=== PATIENT | female | born 1955 | race Caucasian/White ===

== ENCOUNTER 2019-05-09 21:53 | Emergency (ER) | payer BC, SELFPAY ==
[2019-05-09 21:54] VITALS: BP 163/124; PULSE 126; RESP 20; TEMP 37.4; O2SAT 95; BMI 37.8
--- NOTE | 2019-05-09 21:54 | ED_ITS ---
Entered by Leeanna Mcdermott, acting as scribe for HPI - Altered Mental Status General: Chief Complaint: Altered Mental Status Stated Complaint: AMS Time Seen by Provider: 05/09/19 21:54 Source: EMS Mode of arrival: EMS ([facility]) Limitations: altered mental status History of Present Illness: HPI narrative: 63 yo f came to the er by [facility] for AMS. Onset was today. Ems was told that pt was taking a shower and then became altered. Spouse states that she had gotten out of a bath and went to the kitchen to get something to drink and she went back to the back room, and he heard her scream so he ran back there and he was in the floor waving her arms and legs around and was a little combative. Pt was not there mentally per . said that she has been having some sinus issues and was put on some medicine 2 weeks ago and has been having some headaches since the sinus then. is unsure of what the medication that she takes is called. Pt sees . complaint: decreased responsiveness Onset (ago): day(s) (today) Timing confirmed by: family member Severity: moderate Consistency of symptoms: Unknown Context: change in medication Review of Systems General: Reports: other (negative unless marked) Neuro: Reports: headache (per for 2 weeks) and weakness in extremities [facility] ED PFSH: Medical History Trochanteric bursitis, left hip Social History Smoking and tobacco status: current every day smoker Alcohol intake: current Alcohol intake frequency: holidays/special occasions only Physical Exam Const: COMMON NORMALS: no apparent distress and healthy appearing; negative for oriented x3 EXAM LIMITATIONS: altered mental status HENMT: COMMON NORMALS: normocephalic and head/scalp atraumatic HEAD & SCALP: normocephalic and atraumatic Eye: COMMON NORMALS: PERRL and EOMs intact bilaterally PUPIL: Yes PERRL Neck/C-Spine: COMMON NORMALS: full ROM and supple Chest: COMMONS NORMALS: inspection of chest normal and palpation of chest normal Resp: COMMON NORMALS: normal respiratory effort, no retractions, no use of accessory muscles and clear to auscultation bilaterally AUSCULTATION: clear to auscultation bilaterally Cardio: COMMON NORMALS: regular rate, regular rhythm and no murmurs RATE: regular rate RHYTHM: regular rhythm GI: COMMON NORMALS: normal to inspection, nondistended, normoactive bowel sounds, soft to palpation, non-tender and no masses PALPATION: Yes soft Extremity: COMMON NORMALS: normal to inspection and full ROM Neuro: COMMON NORMALS: negative for oriented x3 OTHER: will not move ex tremities at this time. pt will respond verbally but not able to answer questions Psych: APPEARANCE: Yes grossly normal Skin: COMMON NORMALS: no rashes or lesions noted and no wounds GENERAL SKIN EXAM: no rashes or lesions noted Course Vital Signs: Vital signs: Vital Signs Temperature 99.3 F 05/09/19 21:54 Pulse Rate 74 05/10/19 00:07 Respiratory Rate 18 05/10/19 00:07 Blood Pressure 205/109 05/10/19 00:07 Pulse Oximetry 96 05/10/19 00:07 MDM - Altered Mental Status MDM Narrative: Medical decision making narrative: Patient presents with altered mental status that is since resolved. Once patient returned from CT she is awake and alert and able answer all questions. I went and spoke to her after she awoke and she was very upset and angered at this time. She demanded to see her primary care doctor Dr. Lilly. I tried to explain to her that he does not admit his own patients in the ER and that it is midnight and he would not be able to come in to the hospital at this time. I did explain to her that her head CT was normal but still recommended admission due to her altered mental status. She refused as she states she only wants to see Dr. Lilly and would refuse to speak to me. Patient was also very upset with nursing staff as well. She did claim that we had tortured her. When patient arrived here EMS did do a sternal rub to make sure she was arousable and she awoke then. Patient spoke to malt house supervisor Tara while she was here also. I then went back in and talked her again and offered her admission again which she refused she states she would only talk to Dr. Owens. Patient was able answer all my questions appropriately knew the year her name and where she lived. I spoke to her and had her sign out AGAINST MEDICAL ADVICE. Informed her if she changed her mind and would like to be admitted she is to return. Lab Data: Labs: Lab Results 05/09/19 05/09/19 05/09/19 Range/Units 22:15 22:15 22:15 WBC 14.3 H (4.0-10.0) 10^3/ uL RBC 6.05 H (4.1-5.3) 10^6/u L Hgb 16.2 H (11.5-15.3) g/dL Hct 50.9 H (37.0-47.0) % MCV 84.1 (81-99) fL MCH 26.8 L (28.0-34.0) pg MCHC 31.8 (30.0-36.0) g/dL RDW 15.4 H (12.1-15.1) % Plt Count 435 H (130-400) 10^3/c mm MPV 11.0 H (7.4-10.4) fL Neut % (Auto) 78.5 % Lymph % (Auto) 17.6 % Dickey % (Auto) 2.6 % Eos % (Auto) 0.2 % Baso % (Auto) 0.6 % Neut # (Auto) 11.3 H (1.8-7.7) 10^3/u L Lymph # (Auto) 2.5 (0.8-4.8) 10^3/u L Dickey # (Auto) 0.4 (0.2-0.9) 10^3/u L Eos # (Auto) 0.0 (0.0-0.8) 10^3/u L Baso # (Auto) 0.1 (0.0-0.1) 10^3/u L Nucleated RBC % (a uto) 0 % Nucleated RBCs # 0.0 /100WBC PT 13.20 (10.5-13.3) SECO NDS INR 0.97 (0.8-1.2) Sodium 140 (136-145) mmol/L Potassium 3.8 (3.5-5.1) mmol/L Chloride 100 (98-107) mmol/L Carbon Dioxide 18 L (22-29) mmol/L Anion Gap 25.8 H (5-19) BUN 17 (8-23) mg/dL Creatinine 1.2 H (0.5-0.9) mg/dL GFR Calculation 45.4 L (90-130) mL/min Glucose 245 H (65-115) mg/dL Calculated Osmolal ity 295 (285-295) mOsm/k g Lactate (0.5-2.2) mmol/L Calcium 10.6 H (8.5-10.5) mg/dL Magnesium 2.1 (1.7-2.3) mg/dL Total Bilirubin 0.2 (0.15-1.2) mg/dL AST 20 (0-32) U/L ALT 15 (0-33) U/L Alkaline Phosphata se 95 (35-105) IU/L Troponin T Baselin e (0-10) ng/mL Total Protein 7.7 (6.6-8.7) g/dL Albumin 4.4 (3.5-5.2) g/dL Globulin 3.3 (1.3-4.6) g/dL Urine Color (Yellow) Urine Appearance (CLEAR) Urine pH (5-7) Ur Specific Gravit y (1.005-1.030) Urine Protein (Negative) Urine Glucose (UA) (Normal) Urine Ketones (Negative) Urine Blood (Negative) Urine Nitrate (Negative) Urine Bilirubin (NEGATIVE) Urine Urobilinogen (Negative) mg/dL Ur Leukocyte Maddie ase (Negative) Urine RBC (0-2) /hpf Urine WBC (0-5) /hpf Ur Squamous Epith Cells (0-5) Urine Bacteria (NONE) Hyaline Casts Salicylates < 0.3 L (3-10) mg/dL Urine Opiates Scre en (Negative) ng/mL Acetaminophen < 5.0 L (10-30) ug/mL Ur Barbiturates Sc reen (Negative) ng/mL Ur Phencyclidine S crn (Negative) ng/mL Ur Amphetamines Sc reen (Negative) ng/mL U Benzodiazepines Scrn (Negative) ng/mL Urine Cocaine Scre en (Negative) ng/mL U Marijuana (THC) Screen (Negative) ng/mL Ethyl Alcohol < 10 (0-10) mg/dL Influenza Type A A g (Negative) POC Influenza B Ag (Negative) 05/09/19 05/09/19 05/09/19 Range/Units 22:15 22:30 22:30 WBC (4.0-10.0) 10^3/ uL RBC (4.1-5.3) 10^6/u L Hgb (11.5-15.3) g/dL Hct (37.0-47.0) % MCV (81-99) fL MCH (28.0-34.0) pg MCHC (30.0-36.0) g/dL RDW (12.1-15.1) % Plt Count (130-400) 10^3/c mm MPV (7.4-10.4) fL Neut % (Auto) % Lymph % (Auto) % Dickey % (Auto) % Eos % (Auto) % Baso % (Auto) % Neut # (Auto) (1.8-7.7) 10^3/u L Lymph # (Auto) (0.8-4.8) 10^3/u L Dickey # (Auto) (0.2-0.9) 10^3/u L Eos # (Auto) (0.0-0.8) 10^3/u L Baso # (Auto) (0.0-0.1) 10^3/u L Nucleated RBC % (a uto) % Nucleated RBCs # /100WBC PT (10.5-13.3) SECO NDS INR (0.8-1.2) Sodium (136-145) mmol/L Potassium (3.5-5.1) mmol/L Chloride (98-107) mmol/L Carbon Dioxide (22-29) mmol/L Anion Gap (5-19) BUN (8-23) mg/dL Creatinine (0.5-0.9) mg/dL GFR Calculation (90-130) mL/min Glucose (65-115) mg/dL Calculated Osmolal ity (285-295) mOsm/k g Lactate (0.5-2.2) mmol/L Calcium (8.5-10.5) mg/dL Magnesium (1.7-2.3) mg/dL Total Bilirubin (0.15-1.2) mg/dL AST (0-32) U/L ALT (0-33) U/L Alkaline Phosphata se (35-105) IU/L Troponin T Baselin e 13 H (0-10) ng/mL Total Protein (6.6-8.7) g/dL Albumin (3.5-5.2) g/dL Globulin (1.3-4.6) g/dL Urine Color Yellow (Yellow) Urine Appearance Hazy A (CLEAR) Urine pH 5 (5-7) Ur Specific Gravit y 1.030 (1.005-1.030) Urine Protein Neg (Negative) Urine Glucose (UA) 2+ (Normal) Urine Ketones 2+ H (Negative) Urine Blood 2+ H (Negative) Urine Nitrate Negative (Negative) Urine Bilirubin Neg (NEGATIVE) Urine Urobilinogen Norm (Negative) mg/dL Ur Leukocyte Maddie ase Negative (Negative) Urine RBC 5-10 H (0-2) /hpf Urine WBC 0-4 H (0-5) /hpf Ur Squamous Epith Cells 0-4 H (0-5) Urine Bacteria Trace (NONE) Hyaline Casts 15-25 H Salicylates (3-10) mg/dL Urine Opiates Scre en (Negative) ng/mL Acetaminophen (10-30) ug/mL Ur Barbiturates Sc reen (Negative) ng/mL Ur Phencyclidine S crn (Negative) ng/mL Ur Amphetamines Sc reen (Negative) ng/mL U Benzodiazepines Scrn (Negative) ng/mL Urine Cocaine Scre en (Negative) ng/mL U Marijuana (THC) Screen (Negative) ng/mL Ethyl Alcohol (0-10) mg/dL Influenza Type A A g Negative (Negative) POC Influenza B Ag Negative (Negative) 05/09/19 05/09/19 Range/Units 22:30 22:40 WBC (4.0-10.0) 10^3/ uL RBC (4.1-5.3) 10^6/u L Hgb (11.5-15.3) g/dL Hct (37.0-47.0) % MCV (81-99) fL MCH (28.0-34.0) pg MCHC (30.0-36.0) g/dL RDW (12.1-15.1) % Plt Count (130-400) 10^3/c mm MPV (7.4-10.4) fL Neut % (Auto) % Lymph % (Auto) % Dickey % (Auto) % Eos % (Auto) % Baso % (Auto) % Neut # (Auto) (1.8-7.7) 10^3/u L Lymph # (Auto) (0.8-4.8) 10^3/u L Dickey # (Auto) (0.2-0.9) 10^3/u L Eos # (Auto) (0.0-0.8) 10^3/u L Baso # (Auto) (0.0-0.1) 10^3/u L Nucleated RBC % (a uto) % Nucleated RBCs # /100WBC PT (10.5-13.3) SECO NDS INR (0.8-1.2) Sodium (136-145) mmol/L Potassium (3.5-5.1) mmol/L Chloride (98-107) mmol/L Carbon Dioxide (22-29) mmol/L Anion Gap (5-19) BUN (8-23) mg/dL Creatinine (0.5-0.9) mg/dL GFR Calculation (90-130) mL/min Glucose (65-115) mg/dL Calculated Osmolal ity (285-295) mOsm/k g Lactate 3.4 H (0.5-2.2) mmol/L Calcium (8.5-10.5) mg/dL Magnesium (1.7-2.3) mg/dL Total Bilirubin (0.15-1.2) mg/dL AST (0-32) U/L ALT (0-33) U/L Alkaline Phosphata se (35-105) IU/L Troponin T Baselin e (0-10) ng/mL Total Protein (6.6-8.7) g/dL Albumin (3.5-5.2) g/dL Globulin (1.3-4.6) g/dL Urine Color (Yellow) Urine Appearance (CLEAR) Urine pH (5-7) Ur Specific Gravit y (1.005-1.030) Urine Protein (Negative) Urine Glucose (UA) (Normal) Urine Ketones (Negative) Urine Blood (Negative) Urine Nitrate (Negative) Urine Bilirubin (NEGATIVE) Urine Urobilinogen (Negative) mg/dL Ur Leukocyte Maddie ase (Negative) Urine RBC (0-2) /hpf Urine WBC (0-5) /hpf Ur Squamous Epith Cells (0-5) Urine Bacteria (NONE) Hyaline Casts Salicylates (3-10) mg/dL Urine Opiates Scre en Negative (Negative) ng/mL Acetaminophen (10-30) ug/mL Ur Barbiturates Sc reen Negative (Negative) ng/mL Ur Phencyclidine S crn Positive H (Negative) ng/mL Ur Amphetamines Sc reen Negative (Negative) ng/mL U Benzodiazepines Scrn Negative (Negative) ng/mL Urine Cocaine Scre en Negative (Negative) ng/mL U Marijuana (THC) Screen Negative (Negative) ng/mL Ethyl Alcohol (0-10) mg/dL Influenza Type A A g (Negative) POC Influenza B Ag (Negative) Imaging Data^: CXR: Attestation: I personally reviewed and interpreted this imaging study as follows: Radiologist's impression: no acute abnormality CT Head: Radiologist's impression: [address] [address] [address] Scan Report Signed Patient: Linda Barreto Unit #: [id number] : 1955 Age/Sex: 63 / F ADM Date: 05/09/19 Loc: ER Room/Bed: Attending Dr: Ordering Provider/Ordering MD: Neto Cheung MD Date of Service: 05/09/19 Procedure(s): CT head wo con* [id number] Accession Number(s): [id number] Report Number: [id number] PROCEDURE INFORMATION: Exam: CT Head Without Contrast Exam date and time: 05/09/2019 10:02 PM Age: 63 years old Clinical indication: Altered mental status/memory loss; Confusion or disorientation; Additional info: AMS TECHNIQUE: Imaging protocol: Computed tomography of the head without contrast. Total DLP: 863.84 mGy-cm Radiation optimization: All CT scans at this facility use at least one of these dose optimization techniques: automated exposure control; mA and/or kV adjustment per patient size (includes targeted exams where dose is matched to clinical indication); or iterative reconstruction. COMPARISON: No relevant prior studies available. FINDINGS: Brain: No hemorrhage. Unremarkable white matter. No mass effect. Ventricles: No ventriculomegaly. Bones/joints: Unremarkable. No acute fracture. Sinuses: Mucosal thickening in a few ethmoidal air cells. No air-fluid levels. Mastoid air cells: No apparent mastoid disease. Soft tissues: Unremarkable. CT/CT head wo con* [id number] IMPRESSION: No acute findings. EKG Data^: EKG 1: Attestation: I personally reviewed and interpreted this EKG as follows: EKG interpretation date: 05/09/19 EKG interpretation time: 22:15 Interpretation: sinus tach hr [address] or t wave abnormalities qrs 93 qtc 399 Discharge Plan Discharge Patient Disposition: Left Against Medical Advice Clinical Impression: Altered mental status Qualifiers: Altered mental status type: unspecified Qualified Code(s): R41.82 - Altered mental status, unspecified Condition: Stable Prescriptions: No Action triamcinolone acetonide [Kenalog] 40 mg/mL suspension 40 mg IM ONCE Qty: 2 RF: 0 lidocaine (PF) 10 mg/mL (1 %) solution 10 mg IM ONCE Qty: 4 RF: 0 ropivacaine (PF) 5 mg/mL (0.5 %) solution 4 ml intra-articular ONCE Qty: 4 RF: 0 esomeprazole magnesium [Nexium] 40 mg capsule,delayed release(DR/EC) 40 mg PO QDAY RF: 0 alprazolam 0.25 mg tablet 0.25 mg PO QDAY RF: 0 lisinopril 30 mg tablet 30 mg PO QDAY RF: 0 quetiapine 50 mg tablet 50 mg PO QDAY RF: 0 Aleve PM 220-25 mg tablet 1 tab PO ONCE RF: 0 Referrals: Emery Lilly, DO [Primary Care Provider] - 1-3 days Discharge Diet: Advance as tolerated Discharge Activity: Resume usual activity Patient Instructions: Altered Mental Status (ED) Discharge Date/Time: 05/10/19 00:08 Coding Level of Care Code ED Aging Room Operator for Chg Fwd Exam Comprehensive The documentation recorded by the Baldemar trujillo Stephanie Lyn, accurately reflects the service I personally performed and the decisions made by Jonatan tolentino Korby, MD
--- NOTE | 2019-05-09 22:00 | XR_ITS ---
WS: [id number] Portable AP upright chest, 05/09/2019 Clinical Data: fever Comparison: Portable chest, 05/23/2014. Findings: No nodules, masses or effusions are seen. The heart is normal. The pulmonary vascularity is not increased. No pneumonia or pneumothorax is seen. XR/XR chest 1V portable [id number] Impression: Negative chest.
--- NOTE | 2019-05-09 22:00 | CTR_ITS ---
PROCEDURE INFORMATION: Exam: CT Head Without Contrast Exam date and time: 05/09/2019 10:02 PM Age: 63 years old Clinical indication: Altered mental status/memory loss; Confusion or disorientation; Additional info: AMS TECHNIQUE: Imaging protocol: Computed tomography of the head without contrast. Total DLP: 863.84 mGy-cm Radiation optimization: All CT scans at this facility use at least one of these dose optimization techniques: automated exposure control; mA and/or kV adjustment per patient size (includes targeted exams where dose is matched to clinical indication); or iterative reconstruction. COMPARISON: No relevant prior studies available. FINDINGS: Brain: No hemorrhage. Unremarkable white matter. No mass effect. Ventricles: No ventriculomegaly. Bones/joints: Unremarkable. No acute fracture. Sinuses: Mucosal thickening in a few ethmoidal air cells. No air-fluid levels. Mastoid air cells: No apparent mastoid disease. Soft tissues: Unremarkable. CT/CT head wo con* [id number] IMPRESSION: No acute findings. Radiation Dose CTDIVOL = (mGy): DLP = 863.84 (mGy-cm)
--- NOTE | 2019-05-09 22:01 | ECG_ITS ---
Measurements Intervals [place] Rate: 117 P: 38 TX: 185 QRS: -12 QRSD: 93 T: 48 QT: 330 QTc: 461 SINUS TACHYCARDIA INCOMPLETE RIGHT BUNDLE BRANCH BLOCK MINIMAL ST DEPRESSION [0.025+ mV ST DEPRESSION] Compared to ECG 05/23/2014 21:18:21 Incomplete right bundle-branch block now present ST (T wave) deviation now present Sinus rhythm no longer present First degree AV block no longer present Intraventricular conduction delay no longer present Electronically Signed On 05-10-2019 10:29:22 CDT by Elyse Andrews M.D. [email or web address]
[2019-05-09] MEDS: lactated ringers 1,000 ML 999 ML IV (22:18)
[2019-05-09 22:22] LABS: Basophils # 0.1 10^3/uL (0.0-0.1); Basophils % 0.6 %; Eosinophils % 0.2 %; Hematocrit 50.9 % (37.0-47.0); Hemoglobin 16.2 g/dL (11.5-15.3); Lymphocytes # 2.5 10^3/uL (0.8-4.8); Lymphocytes % 17.6 %; Mean Corpuscular HGB Conc 31.8 g/dL (30.0-36.0); Mean Corpuscular Hemoglobin 26.8 pg (28.0-34.0); Mean Corpuscular Volume 84.1 fL (81-99); Monocytes # 0.4 10^3/uL (0.2-0.9); Monocytes % 2.6 %; Neutrophils # 11.3 10^3/uL (1.8-7.7); Neutrophils % 78.5 %; Nucleated Red Blood Cells % 0 %; Platelet Count 435 10^3/cmm (130-400); Red Blood Count 6.05 10^6/uL (4.1-5.3); Red Cell Distribution Width 15.4 % (12.1-15.1); White Blood Count 14.3 10^3/uL (4.0-10.0)
[2019-05-09 22:30] LABS: INR 0.97 (0.8-1.2)
[2019-05-09 22:38] LABS: Acetaminophen < 5.0 ug/mL (10-30); Alanine Aminotransferase 15 U/L (0-33); Albumin Level 4.4 g/dL (3.5-5.2); Alcohol Level < 10 mg/dL (0-10); Alkaline Phosphatase 95 IU/L (35-105); Anion Gap 25.8 (5-19); Aspartate Amino Transferase 20 U/L (0-32); Blood Urea Nitrogen 17 mg/dL (8-23); Calcium 10.6 mg/dL (8.5-10.5); Carbon Dioxide 18 mmol/L (22-29); Chloride 100 mmol/L (98-107); Globulin 3.3 g/dL (1.3-4.6); Glomerular Filtration Rate 45.4 mL/min (90-130); Glucose 245 mg/dL (65-115); Magnesium 2.1 mg/dL (1.7-2.3); Osmolality Calculated 295 mOsm/kg (285-295); Potassium 3.8 mmol/L (3.5-5.1); Salicylate < 0.3 mg/dL (3-10); Sodium 140 mmol/L (136-145); Total Bilirubin 0.2 mg/dL (0.15-1.2); Total Protein 7.7 g/dL (6.6-8.7)
[2019-05-09 22:40] LABS: Troponin(5th) Baseline 13 ng/mL (0-10)
[2019-05-09 22:52] LABS: Bilirubin Urine Neg (NEGATIVE); Blood Urine 2+ (Negative); Glucose Urine UA 2+ (Normal); Ketones Urine 2+ (Negative); Leukocyte Esterase Urine Negative (Negative); Nitrate Urine Negative (Negative); Protein Urine Neg (Negative); Urine Appearance Hazy (CLEAR); Urine Color Yellow (Yellow); Urobilinogen Urine Norm (Negative); pH Urine 5 (5-7)
[2019-05-09 22:53] LABS: Add Urine Microscopic? YES
[2019-05-09 22:54] LABS: Amphetamines Screen Urine Negative (Negative); Barbiturates Screen Urine Negative (Negative); Benzodiazepines Screen Urine Negative (Negative); Cocaine Screen Urine Negative (Negative); Opiate Screen Urine Negative (Negative); PCP Screen Urine Positive (Negative); THC Screen Urine Negative (Negative)
[2019-05-09 22:55] LABS: Hyaline Casts Urine 15-25
[2019-05-09 22:58] LABS: Add Urine Culture? No; Bacteria Urine TRACE; Squamous Epithelial Cell Urine 0-4 (0-5); WBC Urine 0-4 /hpf (0-5)
[2019-05-09 22:59] LABS: Lactate (Lactic Acid level) 3.4 mmol/L (0.5-2.2)
[2019-05-09 23:02] LABS: Influenza A by IFA Negative (Negative); Influenza B by IFA Negative (Negative)
[2019-05-10 00:07] VITALS: BP 205/109; PULSE 74; RESP 18; O2SAT 96
== END 2019-05-10 00:08 | disposition left against medical advice (07) ==
PROVIDERS: Emergency Provider Emergency Medicine; Family Provider Electrodiagnostic Medicine; PCP Electrodiagnostic Medicine
DX: R41.82 Altered mental status, unspecified (principal); F17.200 Nicotine dependence, unspecified, uncomplicated
CPT/HCPCS: 12345; 36415; 70450; 71045; 80053; 80306; 80307; 81001; 83605; 83735; 84484; 85025; 85610; 87040; 87804; 93005; 96365; 99283; 99284

== ENCOUNTER → 2019-10-25 13:46 | Outpatient (BNVA) | payer BC, SELFPAY | PROVIDERS: Family Provider Electrodiagnostic Medicine; PCP Electrodiagnostic Medicine; Visit Provider Specialist | DX: M70.62 Trochanteric bursitis, left hip (principal) | CPT/HCPCS: 73502 ==

== ENCOUNTER 2019-12-31 22:17 | Observation (INO) | payer BC, SELFPAY ==
[2019-12-31 22:36] VITALS: BP 164/81; PULSE 79; RESP 20; TEMP 36.8; O2SAT 100; BMI 33.8
[2019-12-31 23:17] VITALS: BP 128/90; PULSE 68; RESP 20; O2SAT 98
[2019-12-31] MEDS: pantoprazole 40 mg SDV 80 MG IVP (23:17)
[2019-12-31] MEDS: ondansetron 2 mg/ML SDV 2 mL 4 MG IVP (23:17)
[2019-12-31] MEDS: morphine 4 mg/mL SDV 1 mL IVP (23:17)
[2019-12-31 23:18] LABS: Basophils # 0.1 10^3/uL (0.0-0.1); Basophils % 0.4 %; Eosinophils % 0.1 %; Hematocrit 46.8 % (37.0-47.0); Hemoglobin 14.8 g/dL (11.5-15.3); Lymphocytes # 2.1 10^3/uL (0.8-4.8); Lymphocytes % 12.5 %; Mean Corpuscular HGB Conc 31.6 g/dL (30.0-36.0); Mean Corpuscular Hemoglobin 26.8 pg (28.0-34.0); Mean Corpuscular Volume 84.6 fL (81-99); Mean Platelet Volume 10.5 fL (7.4-10.4); Monocytes # 0.6 10^3/uL (0.2-0.9); Monocytes % 3.4 %; Neutrophils # 13.84 10^3/uL (1.8-7.7); Neutrophils % 82.9 %; Nucleated Red Blood Cells % 0 %; Platelet Count 403 10^3/cmm (130-400); Red Blood Count 5.53 10^6/uL (4.1-5.3); Red Cell Distribution Width 14.4 % (12.1-15.1); White Blood Count 16.7 10^3/uL (4.0-10.0)
--- NOTE | 2019-12-31 23:22 | CTR_ITS ---
PROCEDURE INFORMATION: Exam: CT Abdomen And Pelvis With Contrast Exam date and time: 12/31/2019 12:02 AM Age: 64 years old Clinical indication: Abdominal pain; Localized; Right upper quadrant (ruq); Additional info: Abdominal pain, bilious emesis TECHNIQUE: Imaging protocol: Computed tomography of the abdomen and pelvis with intravenous contrast. Radiation optimization: All CT scans at this facility use at least one of these dose optimization techniques: automated exposure control; mA and/or kV adjustment per patient size (includes targeted exams where dose is matched to clinical indication); or iterative reconstruction. Contrast material: OMNI 300; Contrast volume: 95 ml; Contrast route: INTRAVENOUS (IV); COMPARISON: CT abdomen pelvis w con* [id number] 12/25/2018 1:11 AM RADIATION DOSE METRICS: Total DLP (mGy-cm): 1147.86 FINDINGS: Liver: Left hepatic lobe cyst, negative for follow-up of. Hepatic steatosis. Gallbladder and bile ducts: Cholelithiasis. Pancreas: Normal. No ductal dilation. Spleen: Normal. No splenomegaly. Adrenal glands: Left adrenal 17 mm nodule, dedicated nonemergent adrenal advised. Kidneys and ureters: Normal. No hydronephrosis. Stomach and bowel: Diverticulosis without diverticulitis. Appendix: No evidence of appendicitis. Intraperitoneal space: Unremarkable. No free air. No significant fluid collection. Vasculature: Unremarkable. No abdominal aortic aneurysm. Lymph nodes: Unremarkable. No enlarged lymph nodes. Urinary bladder: Unremarkable as visualized. Reproductive: Unremarkable as visualized. Bones/joints: Unremarkable. No acute fracture. Soft tissues: Unremarkable. CT/CT abdomen pelvis w con* [id number] IMPRESSION: 1. Negative acute inflammatory process in the abdomen or pelvis 2. Left hepatic lobe cyst, negative for follow-up of. 3. Hepatic steatosis. 4. Left adrenal 17 mm nodule, dedicated nonemergent adrenal advised. 5. Cholelithiasis. 6. Diverticulosis without diverticulitis. Radiation Dose CTDIVOL = (mGy): DLP = 1147.86 (mGy-cm)
[2019-12-31 23:29] LABS: Alanine Aminotransferase 15 U/L (0-33); Albumin Level 4.6 g/dL (3.5-5.2); Alkaline Phosphatase 107 IU/L (35-105); Anion Gap 18.1 (5-19); Aspartate Amino Transferase 19 U/L (0-32); Blood Urea Nitrogen 11 mg/dL (8-23); Calcium 9.7 mg/dL (8.5-10.5); Carbon Dioxide 23 mmol/L (22-29); Chloride 103 mmol/L (98-107); Globulin 2.8 g/dL (1.3-4.6); Glomerular Filtration Rate 72.2 mL/min (90-130); Glucose 199 mg/dL (65-115); Lipase 17 U/L (13-60); Osmolality Calculated 295 mOsm/kg (285-295); Potassium 4.1 mmol/L (3.5-5.1); Sodium 140 mmol/L (136-145); Total Bilirubin 0.2 mg/dL (0.15-1.2); Total Protein 7.4 g/dL (6.6-8.7)
[2019-12-31 23:30] LABS: Lactic Sepsis W/Reflex 3.8 mmol/L (0.5-2.2)
[2020-01-01] VITALS (36 sets, daily range): BP systolic 77–154; BP diastolic 51–94; PULSE 64–92; RESP 15–26; TEMP 36.2–37.3; O2SAT 89–98
--- NOTE | 2020-01-01 | ED_ITS ---
HPI - Abdominal Pain General: Chief Complaint: Abdominal Pain Stated Complaint: abd pain Time Seen by Provider: 12/31/19 22:49 History of Present Illness: HPI narrative: This patient is a 64-year-old female comes in today with severe epigastric pain. Apparently it started about 630 this evening. She has been vomiting although she cannot give me any details - answering that she doesn't know. She had biliary emesis here prior to my exam. She is in quite a bit of distress and does not really want answer my questions. She says that she has had this before and was diagnosed with acute gastritis. She is never had any abdominal surgeries. MD elicited complaint: abdominal pain Pertinent past history: gastritis Onset (ago): hour(s) (3) Pain Consistency: constant Location: Epigastric Severity: severe Quality: cramping and stabbing Radiation: none Migration to: no migration Associated Symptoms: Reports no associated symptoms, nausea and vomiting; Denies chills, constipation, diarrhea and fever(s) Review of Systems General: Reports: 10 or more systems reviewed and unremarkable except in HPI and below Const: Denies: fever(s) or chills ENMT: Denies: odynophagia Resp: Denies: dyspnea GI: Reports: abdominal pain, nausea and vomiting; Denies: diarrhea or constipation : Denies: flank pain or difficulty voiding Musc: Denies: neck pain or back pain Skin/Breast: Denies: rash Neuro: Denies: headache(s), numbness in extremities or weakness in extremities Homero/Lymph: Denies: easy bruising or easy bleeding [facility] ED PFSH: Medical History Trochanteric bursitis, left hip Social History Smoking and tobacco status: current every day smoker Alcohol intake: current Alcohol intake frequency: holidays/special occasions only Physical Exam Const: COMMON NORMALS: patient oriented x3 and alert GENERAL APPEARANCE: cooperative, in distress, anxious and appears older than stated age NUTRITIONAL APPEARANCE: obese ORIENTATION/CONSCIOUSNESS: Yes awake HENMT: HEAD & SCALP: normal to inspection FACE & SINUS: normal facial exam Eye: GENERAL EYE: appearance normal, both eyes and all related structures Neck/C-Spine: COMMON NORMALS: supple, no meningeal signs and no JVD Chest: COMMONS NORMALS: normal inspection of the chest Resp: COMMON NORMALS: normal respiratory effort, No use of accessory muscles and clear to auscultation bilaterally AUSCULTATION: clear to auscultation bilaterally Cardio: COMMON NORMALS: no JVD, regular rate, regular rhythm and No murmurs present (Cardio) RATE: regular rate RHYTHM: regular rhythm GI: PALPATION: Yes Firmness to palpation present (GI), Yes Tenderness to palpation present (GI) (Bilateral upper quadrants and epigastric area) and Yes Guarding due to palpation present (GI) Back/Pelvis: COMMON NORMALS: thoracic and lumbar spine normal to inspection Extremity: COMMON NORMALS: normal to inspection Neuro: COMMON NORMALS: patient oriented x3, moves all extremities, no focal motor deficits and no sensory deficits noted SENSORIUM/ORIENTATION: Yes alert MENINGEAL SIGNS: Yes no meningeal signs Psych: COMMON NORMALS: mental status grossly normal, cooperative and normal affect Skin: COMMON NORMALS: no rashes or lesions noted and turgor normal GENERAL SKIN EXAM: no rashes or lesions noted and turgor normal Course ED course: Patient was treated with multiple doses of pain medication but co ntinued to complain of severe pain. On reexamination when she had calmed down somewhat I was able to localize her pain to the right upper quadrant. She does have an elevated white count. LFTs were within normal limits. CT showed gallstones and ultrasound of the right upper quadrant confirmed gallstones with a normal common bile duct, normal wall thickness, no pericholecystic fluid. I discussed this with Dr. Dacosta and he will admit her to the hospital for further management. She was given a dose of Zosyn while in the ED. Vital Signs: Vital signs: Vital Signs Temperature 97.6 F 01/01/20 03:54 Pulse Rate 75 01/01/20 03:54 Respiratory Rate 20 H 01/01/20 03:54 Blood Pressure 120/60 01/01/20 03:54 Pulse Oximetry 96 01/01/20 03:54 MDM - Abdominal Pain Lab Data: Labs: Lab Results 12/31/19 12/31/19 12/31/19 Range/Units 23:00 23:00 23:00 WBC 16.7 H (4.0-10.0) 10^3/ uL RBC 5.53 H (4.1-5.3) 10^6/u L Hgb 14.8 (11.5-15.3) g/dL Hct 46.8 (37.0-47.0) % MCV 84.6 (81-99) fL MCH 26.8 L (28.0-34.0) pg MCHC 31.6 (30.0-36.0) g/dL RDW 14.4 (12.1-15.1) % Plt Count 403 H (130-400) 10^3/c mm MPV 10.5 H (7.4-10.4) fL Neut % (Auto) 82.9 % Lymph % (Auto) 12.5 % [place] % (Auto) 3.4 % Eos % (Auto) 0.1 % Baso % (Auto) 0.4 % Neut # (Auto) 13.84 H (1.8-7.7) 10^3/u L Lymph # (Auto) 2.1 (0.8-4.8) 10^3/u L [place] # (Auto) 0.6 (0.2-0.9) 10^3/u L Eos # (Auto) 0.0 (0.0-0.8) 10^3/u L Baso # (Auto) 0.1 (0.0-0.1) 10^3/u L Nucleated RBC % (a uto) 0 % Nucleated RBCs # 0.0 /100WBC Sodium 140 (136-145) mmol/L Potassium 4.1 (3.5-5.1) mmol/L Chloride 103 (98-107) mmol/L Carbon Dioxide 23 (22-29) mmol/L Anion Gap 18.1 (5-19) BUN 11 (8-23) mg/dL Creatinine 0.8 (0.5-0.9) mg/dL GFR Calculation 72.2 L (90-130) mL/min Glucose 199 H (65-115) mg/dL Calculated Osmolal ity 295 (285-295) mOsm/k g Lactic Acid 3.8 H (0.5-2.2) mmol/L Calcium 9.7 (8.5-10.5) mg/dL Total Bilirubin 0.2 (0.15-1.2) mg/dL AST 19 (0-32) U/L ALT 15 (0-33) U/L Alkaline Phosphata se 107 H (35-105) IU/L Total Protein 7.4 (6.6-8.7) g/dL Albumin 4.6 (3.5-5.2) g/dL Globulin 2.8 (1.3-4.6) g/dL Lipase 17 (13-60) U/L Urine Color (Yellow) Urine Appearance (CLEAR) Urine pH (5-7) Ur Specific Gravit y (1.005-1.030) Urine Protein (Negative) Urine Glucose (UA) (Normal) Urine Ketones (Negative) Urine Blood (Negative) Urine Nitrate (Negative) Urine Bilirubin (Negative) Urine Urobilinogen (Negative) mg/dL Ur Leukocyte Maddie ase (Negative) 01/01/20 Range/Units 00:30 WBC (4.0-10.0) 10^3/ uL RBC (4.1-5.3) 10^6/u L Hgb (11.5-15.3) g/dL Hct (37.0-47.0) % MCV (81-99) fL MCH (28.0-34.0) pg MCHC (30.0-36.0) g/dL RDW (12.1-15.1) % Plt Count (130-400) 10^3/c mm MPV (7.4-10.4) fL Neut % (Auto) % Lymph % (Auto) % [place] % (Auto) % Eos % (Auto) % Baso % (Auto) % Neut # (Auto) (1.8-7.7) 10^3/u L Lymph # (Auto) (0.8-4.8) 10^3/u L [place] # (Auto) (0.2-0.9) 10^3/u L Eos # (Auto) (0.0-0.8) 10^3/u L Baso # (Auto) (0.0-0.1) 10^3/u L Nucleated RBC % (a uto) % Nucleated RBCs # /100WBC Sodium (136-145) mmol/L Potassium (3.5-5.1) mmol/L Chloride (98-107) mmol/L Carbon Dioxide (22-29) mmol/L Anion Gap (5-19) BUN (8-23) mg/dL Creatinine (0.5-0.9) mg/dL GFR Calculation (90-130) mL/min Glucose (65-115) mg/dL Calculated Osmolal ity (285-295) mOsm/k g Lactic Acid (0.5-2.2) mmol/L Calcium (8.5-10.5) mg/dL Total Bilirubin (0.15-1.2) mg/dL AST (0-32) U/L ALT (0-33) U/L Alkaline Phosphata se (35-105) IU/L Total Protein (6.6-8.7) g/dL Albumin (3.5-5.2) g/dL Globulin (1.3-4.6) g/dL Lipase (13-60) U/L Urine Color Yellow (Yellow) Urine Appearance Clear (CLEAR) Urine pH 7.0 (5-7) Ur Specific Gravit y 1.010 (1.005-1.030) Urine Protein Neg (Negative) Urine Glucose (UA) Trace H (Normal) Urine Ketones 2+ H (Negative) Urine Blood Neg (Negative) Urine Nitrate Negative (Negative) Urine Bilirubin Neg (Negative) Urine Urobilinogen Norm (Negative) mg/dL Ur Leukocyte Maddie ase Negative (Negative) Discharge Plan Discharge Admit Provider: Gui Dacosta Coding Level of Care Code ED Clinical Aide for Rayg Fwd Exam Comprehensive
[2020-01-01] MEDS: iohexol 300 mg/mL 100 mL Btl IV (00:09)
[2020-01-01] MEDS: morphine 4 mg/mL SDV 1 mL IVP (00:44)
[2020-01-01 00:52] LABS: Add Urine Microscopic? NO
[2020-01-01 00:55] LABS: Bilirubin Urine Neg (Negative); Blood Urine Neg (Negative); Glucose Urine UA Trace (Normal); Ketones Urine 2+ (Negative); Nitrate Urine Negative (Negative); Protein Urine Neg (Negative); Urine Appearance Clear (CLEAR); Urine Color Yellow (Yellow)
[2020-01-01 00:56] LABS: Reflex Lactate Order REFLEX LACTIC ORDERD
[2020-01-01 00:56] LABS: Leukocyte Esterase Urine Negative (Negative); Urobilinogen Urine Norm (Negative)
--- NOTE | 2020-01-01 01:31 | US_ITS ---
WS: [id number] RIGHT UPPER QUADRANT ULTRASOUND HISTORY: RUQ COMPARISON: None available. Liver: 16.3 cm in length. Liver is normal size but there is moderate hepatic steatosis. No adjacent f luid. Gallbladder: Normally distended gallbladder with stones. No gallbladder wall thickening. No perichole cystic fluid. CBD: 0.4 cm Pancreas: Not well visualized. Right kidney: 11.8 cm in length. Normal size and echogenicity. No hydronephrosis or mass. Aorta and IVC: Unremarkable abdominal aorta and IVC. No ascites. US/US gall bladder 32597 IMPRESSION: 1. Cholelithiasis without additional evidence for acute cholecystitis. 2. Moderate hepatic steatosis.
[2020-01-01] MEDS: HYDROmorphone 1 mg/mL INJ 1 mL 0.5 MG IVP (02:17)
[2020-01-01] MEDS: piperacillin-tazobactam 3.375 GM in sodium chloride 0.9% (plus) 50 ML IV ×3 (03:28→22:18)
--- NOTE | 2020-01-01 03:55 | PC.NURSE ---
ADMIT NOTE Pt received to floor from ER via gurney at 0345. Alert and moaning. Says just feels awful. Reports pain in RUQ abdomen, nausea with vomiting started around 1700 in the evening. Reports similar episodes in past. IV patent to right ac area. Rating pain in abdomen as a 7 at present time. Says last BM was 12/31/19. VS check done and oriented to room. RN to complete admission assessment
[2020-01-01] MEDS: D5-NS 0.45% + KCL 20 mEq 20 MEQ/1,000 ML BAG 100 MEQ IV ×2 (04:37→16:35)
[2020-01-01] MEDS: ondansetron 2 mg/ML SDV 2 mL 4 MG IVP (04:44)
[2020-01-01] MEDS: morphine 4 mg/mL SDV 1 mL 2 MG IVP (04:44)
--- NOTE | 2020-01-01 07:05 | P.HP_ITS ---
Providers/Chief Complaint Admitting Physician: Gui Dacosta MD Primary Care Provider: Emery Lilly DO Chief Complaint: abd pain History of Present Illness Linda Barreto is a 64 year old female who presented to the hospital last evening after she said she started getting indigestion around 5 PM. She describes this as rather severe epigastric pain associated with some nausea. The patient says she has noticed episodes like this over the past year or so. She has had 3-4 bad episodes but last night was perhaps the worst. She has had less intense episodes in between the episodes that are worse. She says that she has noticed eating particular foods tend to make her pain come on. She says she has noticed that spicy food is one of the worst things for her. Her pain will sometimes radiate around the right side of her body to her back. She feels gassy and bloated and belchy when the episodes occur. She had a CAT scan last night which revealed cholelithiasis but no acute abnormalities. A follow-up ultrasound was done but has yet to be officially read by the radiologist. The patient was in the emergency room on 1 previous occasion for this and was told she had gastritis. She does not ever recall having any kind of a test to confirm that and denies ever having an EGD. She did have a colonoscopy about a year ago and says it was okay. She was started on omeprazole 3 months ago and has been on it daily but continues to have symptoms. She denies any NSAID use. She does tell me that she has had some very dark stool on and off for the past year. She is never been diagnosed with peptic ulcer disease in the past other than the empiric diagnosis of gastritis several months ago. She has no known family history of upper GI neoplasia. The patient says she is feeling a little bit better this morning but is still not feeling well. Review of Systems General: Reports: 10 or more systems reviewed and unremarkable except in HPI and below Const: Denies: fever(s) Resp: Denies: dyspnea GI: Reports: abdominal pain, nausea, vomiting and melena; Denies: hematemesis Medications/Allergies Home Medications Medication Instructions Recorded Confirmed Last Taken Type alprazolam 0.25 mg tablet 0.25 mg PO QDAY 03/07/19 10/25/19 Unknown History esomeprazole magnesium 40 mg 40 mg PO QDAY 03/07/19 10/25/19 Unknown History capsule,delayed release lisinopril 30 mg tablet 30 mg PO QDAY 03/07/19 10/25/19 Unknown History naproxen 220 mg-diphenhydramine 25 1 tab PO ONCE 03/07/19 10/25/19 Unknown History mg tablet quetiapine 50 mg tablet 50 mg PO QDAY 03/07/19 10/25/19 Unknown History escitalopram oxalate 10 mg tablet 10 mg PO DAILY 06/25/19 10/25/19 Unknown History Allergies Allergy/AdvReac Type Severity Reaction Status Date / Time celecoxib [From Celebrex] AdvReac My left Verified 01/01/20 07:38 leg gets heavy meloxicam AdvReac My left Verified 01/01/20 07:38 leg gets heavy PFSH Acute PFSH: Medical History (Updated 01/01/20 @ 07:35 by Gui Dacosta MD) Diverticulosis Hypertension Insomnia Trochanteric bursitis of left hip Surgical History (Updated 01/01/20 @ 07:29 by Gui Dacosta MD) History of appendectomy Social History (Updated 01/01/20 @ 07:36 by Gui Dacosta MD) Smoking and tobacco status: current every day smoker cigarettes Packs smoked per day: 1 Years cigarettes smoked: 20 Alcohol intake: never Vitals/I&O/Wt Last Vital Signs Temp 97.6 F 01/01/20 03:54 Pulse 75 01/01/20 03:54 Resp 18 01/01/20 04:44 BP 120/60 01/01/20 03:54 Pulse Ox 96 01/01/20 03:54 12/31/19 01/01/20 01/01/20 22:59 06:59 14:59 Output Total 300 / 300 Balance -300 / -300 Weight last 48 hrs Weight 185 lb Physical Exam Narrative: EXAM NARRATIVE: The patient was encountered in her hospital room. She indicates that she just does not feel well and has indigestion. The pupils seem equal. No carotid bruits are heard. The lungs are clear anteriorly. The heart is regular. The abdomen is moderately obese but is soft. Bowel sounds are clearly hypoactive. The patient's maximum point of tenderness is in the epigastrium and the right upper quadrant. Armas sign is equivocal. She clearly has more tenderness on the right side than the left side of the abdomen at its upper aspect. No obvious masses are palpated. Extremities reveal no edema. Neurologically the patient appears to be grossly intact. Data : 12/31/19 23:00 12/31/19 23:00 Other Labs: Laboratory Tests 12/31/19 23:00 Total Bilirubin 0.2 AST 19 ALT 15 Alkaline Phosphatase [address] Abd/Pel: Radiologist's impression: CT abdomen/pelvis 12/31/2019 IMPRESSION: 1. Negative acute inflammatory process in the abdomen or pelvis 2. Left hepatic lobe cyst, negative for follow-up of. 3. Hepatic steatosis. 4. Left adrenal 17 mm nodule, dedicated nonemergent adrenal advised. 5. Cholelithiasis. 6. Diverticulosis without diverticulitis. A&P Assessment and plan (1) Calculus of gallbladder with chronic cholecystitis without obstruction: The patient has some ongoing symptoms that are certainly consistent with biliary colic over the past year. We discussed gallbladder disease and gallbladder surgery in some detail. Risks including bleeding, infection, internal organ injury, chances of an open procedure, etc. were all gone over. The patient is feeling slightly better but remains very uncomfortable. I am so mewhat concerned about her elevated lactate, but there is no indication of any other obvious issues on her CAT scan. In looking at the ultrasound images myself, she clearly has cholelithiasis but does not appear to have a significantly thickened gallbladder wall, pericholecystic fluid, etc. The patient seems to indicate that her stool is quite dark at times over the past year but she has been on a proton pump inhibitor daily for at least the last 3 months and her symptoms continue to worsen. I made her aware that an EGD is also a possibility but I suspect her gallbladder is going to be more of the issue. She would like to proceed with a cholecystectomy and would be willing to follow-up with an EGD if felt necessary at some point in time. Laparoscopy will at least allow us to evaluate the abdominal cavity otherwise, and we will proceed with a cholecystectomy if no contraindications exist. Status: Acute Attestations Medical Necessity Statement*: Based on my medical assessment, presenting symptoms, medical accuity and consideration of surgical therapy, I expect this patient will require treatment in the hospital for a period spanning at least 2 midnights. Coding Level of Care Code Acute Underground Utility Locator for Chg Fwd Diagnoses Calculus of gallbladder with chronic cholecystitis without obstruction K80.10
[2020-01-01] MEDS: pantoprazole 40 mg SDV IVP (08:45)
--- NOTE | 2020-01-01 11:22 | P.ANESASSM_ITS ---
Pre-Anesthetic Assessment Pre-Anesthetic Assessment: Height/Weight: Height 1.57 m Weight 83.915 kg Temp Pulse Resp BP Pulse Ox 97.1 F L 81 18 144/82 97 01/01/20 11:21 01/01/20 11:21 01/01/20 11:21 01/01/20 11:21 01/01/20 11:21 Preop Diagnosis: cholecystisis Proposed Procedure: Operation Date: 01/01/20 11:30 Proposed Procedures p Laparoscopic Cholecystectomy(Not Applicable) - Gui Dacosta MD Familial anesthetic complications: none Was Beta La taken within 24 hours: N/A Last intake: Intake Last Liquid Date 01/01/20 Last Liquid Time 21:00 Last Solid Date 12/31/19 Last Solid Time 16:00 Social: Social History: Tobacco and No alcohol Exam: Pre-Anes Outpt Exam: alert, oriented x 3, clear to auscultation bilat erally and regular rate & rhythm Additional Exam Findings (including area of procedure): tachypnea d/t pain Airway: Cervical ROM: WNL MP: 3 Dentition: Full CV/HEM: CV/HEM: HTN GI: GI: GERD Anesthetic Plan: ASA status: 2E Anesthesia: General Risk of > 500 ml blood loss (7ml/kg in children): No Meds/Allergies Current Medications: Current Medications Generic Name Dose Route Start Last Admin Trade Name Freq PRN Reason Stop Dose Admin Potassium Chloride /Dextrose/Sod Cl 20 meq in 1,000 m ls @ 100 mls/hr 01/01/20 04:15 01/01/20 04:37 D5-Ns 0.45% + Slick l 20 Meq IV 100 mls/hr .Q10H KOKO Administration Morphine Sulfate 2 mg 01/01/20 04:12 01/01/20 04:44 Morphine 4 Mg/Ml Sdv 1 Ml IVP 2 mg Q4H PRN Administration SEVERE PAIN Ondansetron HCl 4 mg 01/01/20 04:12 01/01/20 04:44 Ondansetron 2 Mg /Ml Sdv 2 Ml IVP 4 mg Q4H PRN Administration NAUSEA AND VOMITI NG Pantoprazole Sodiu m 40 mg 01/01/20 08:00 01/01/20 08:45 Pantoprazole 40 Mg Sdv IVP 40 mg Q12H KOKO Administration PFSH Anesthesia PFSH: Medical History (Updated 01/01/20 @ 07:35 by Gui Dacosta MD) Diverticulosis Hypertension Insomnia Trochanteric bursitis of left hip Surgical History (Updated 01/01/20 @ 07:29 by Gui Dacosta MD) History of appendectomy Social History (Updated 01/01/20 @ 07:36 by Gui Dacosta MD) Smoking and tobacco status: current every day smoker cigarettes Packs smoked per day: 1 Years cigarettes smoked: 20 Alcohol intake: never Data Anesthesia CBC & Chem 7: 12/31/19 23:00 12/31/19 23:00 Other Labs: Laboratory Results - last 48 hr 12/31/19 12/31/19 12/31/19 23:00 23:00 23:00 WBC 16.7 H RBC 5.53 H Hgb 14.8 Hct 46.8 MCV 84.6 MCH 26.8 L MCHC 31.6 RDW 14.4 Plt Count 403 H MPV 10.5 H Neut % (Auto) 82.9 Lymph % (Auto) 12.5 [place] % (Auto) 3.4 Eos % (Auto) 0.1 Baso % (Auto) 0.4 Neut # (Auto) 13.84 H Lymph # (Auto) 2.1 [place] # (Auto) 0.6 Eos # (Auto) 0.0 Baso # (Auto) 0.1 Nucleated RBC % (auto) 0 Nucleated RBCs # 0.0 Sodium 140 Potassium 4.1 Chloride 103 Carbon Dioxide 23 Anion Gap 18.1 BUN 11 Creatinine 0.8 GFR Calculation 72.2 L Glucose 199 H Calculated Osmolality 295 Lactic Acid 3.8 H Calcium 9.7 Total Bilirubin 0.2 AST 19 ALT 15 Alkaline Phosphatase 107 H Total Protein 7.4 Albumin 4.6 Globulin 2.8 Lipase 17 Urine Color Urine Appearance Urine pH Ur Specific [place] Urine Protein Urine Glucose (UA) Urine Ketones Urine Blood Urine Nitrate Urine Bilirubin Urine Urobilinogen Ur Leukocyte Esterase 01/01/20 00:30 WBC RBC Hgb Hct MCV MCH MCHC RDW Plt Count MPV Neut % (Auto) Lymph % (Auto) [place] % (Auto) Eos % (Auto) Baso % (Auto) Neut # (Auto) Lymph # (Auto) [place] # (Auto) Eos # (Auto) Baso # (Auto) Nucleated RBC % (auto) Nucleated RBCs # Sodium Potassium Chloride Carbon Dioxide Anion Gap BUN Creatinine GFR Calculation Glucose Calculated Osmolality Lactic Acid Calcium Total Bilirubin AST ALT Alkaline Phosphatase Total Protein Albumin Globulin Lipase Urine Color Yellow Urine Appearance Clear Urine pH 7.0 Ur Specific [place] 1.010 Urine Protein Neg Urine Glucose (UA) Trace H Urine Ketones 2+ H Urine Blood Neg Urine Nitrate Negative Urine Bilirubin Neg Urine Urobilinogen Norm Ur Leukocyte Esterase Negative Cardiac Studies: No Data to Display
--- NOTE | 2020-01-01 12:10 | P.OP_ITS ---
Operative Report Date of procedure: January 01, 2020 Pre-op Diagnosis: Early acute calculus cholecystitis. Post-op Diagnosis: Acute calculus cholecystitis. Procedure Done: Laparoscopic cholecystectomy. Specimens removed/disposition: Gallbladder. Surgeon: Gui Dacosta Anesthesia: General Estimated blood loss (mL): 5 Complications: None. Condition: stable Disposition: PACU Procedure: The patient was brought to the Operating Room and was placed in a supine position on the Operating Room table. General endotracheal anesthesia was induced. The abdomen was prepped and draped in a sterile fashion. A small vertical incision was carried out in the inferior aspect of the umbilicus. Blunt dissection was carried out down to the fascia, which was graspe d with a Timoteo clamp. A stay suture of 0 Vicryl was placed on either side of the midline and the midline fascia was incised. The underlying peritoneum was opened bluntly and the Virgilio port was placed directly into the peritoneal cavity and was held in place with the inflatable balloon. The peritoneal cavity was insufflated with carbon dioxide. The laparoscope was used to inspect the abdominal cavity. The portion of the gallbladder that was able to be seen was edematous. No other gross abnormalities were seen. A 5 millimeter port was placed in the epigastrium under direct vision. Two 5-millimeter ports were placed on the right side of the abdomen under direct vision. The gallbladder was palpated with a grasper and was found to be distended. Approximately 50 mL of dark bile were aspirated from the gallbladder with a laparoscopic needle to decompress it. The gallbladder was then grasped and was elevated. Blunt dissection and hydrodissection were carried out in the infundibular region of the gallbladder and the cystic duct and cystic artery were quickly identified. All of the surrounding tissue was edematous and dissected very easily as a result. The gallbladder was partially removed from the liver bed using cautery and the spatula to confirm the anatomy before the structures were clipped and divided. The gallbladder was then removed from the liver bed using cautery and the spatula. Once again, the plane between the gallbladder and the liver bed was edematous. After the gallbladder had been removed from the liver bed, the laparoscope was moved to the epigastric port and the gallbladder was removed from the peritoneal cavity through the umbilical port site. The stay sutures of Vicryl were tied to each other at the umbilicus, closing the defect so that it was airtight. The perihepatic spaces were irrigated with saline and the liver bed was reinspected. No ongoing problems were seen. The remaining ports were removed from the abdominal wall and the pneumope ritoneum was evacuated. All skin incisions were closed using inverted interrupted sutures of 4-0 Vicryl. Benzoin and Steri-Strips were placed over the incisions and Band-Aids followed. The patient was taken to the Recovery Area in stable condition postoperatively.
--- NOTE | 2020-01-01 13:06 | SUR.PHASEI ---
PT AWAKES EASILY , RESP EVEN AND UNLABORED PT HAD EXP WHEEZES EARLIER SEE ALBUTEROL GIVEN PT NOW CLEAR WITH DIM BASES BILAT, PT SLEEPS IF NOT DISTURBED ABD SOFT WITH 4 SITES D/I SATS 94% WITH NO DISTRESS NOTED REPORT ATTEMPTED TO BE CALLED PT NOW IN HOLDING
[2020-01-01] MEDS: heparin 5,000 unit/mL INJ 1 mL 5000 UNIT SUBCUT (13:50)
[2020-01-01] MEDS: ketorolac 30 mg/mL INJ 15 MG IVP ×2 (13:50→20:10)
[2020-01-01] MEDS: escitalopram 10 mg Tablet PO (13:50)
[2020-01-01 14:01] LABS: H. Pylori IgG Antibody Negative (Negative)
--- NOTE | 2020-01-01 14:34 | PM.PACU ---
PACU note PACU note: To floor on NC and continuou pulse ox, O2 sats mid to high 90s Post-Anesthesia Exam: awake Disposition: back to floor
[2020-01-01] MEDS: lactated ringers 500 ML IV (14:47)
--- NOTE | 2020-01-01 15:11 | PM.MISC ---
Miscellaneous Note Purpose of Documentation: Postoperative note. Note: The patient underwent a laparoscopic cholecystectomy for changes of acute calculus cholecystitis midday today. Surgery went well. I was notified by nursing that the patient's blood pressure was a little bit low with a systolic blood pressure of 79, but she was completely asymptomatic. I ordered a 500 mL bolus of LR and asked them to hold on the narcotic pain medication, as well as her scheduled lisinopril. By the time I saw the patient half an hour later her systolic blood pressure was already up to 100. Oxygen saturations are in the mid 90s and her heart rate is normal. She said she already felt much better than she did preoperatively. I told her I wanted to watch her overnight and would plan on sending her home tomorrow morning if everything goes well, and she is very anxious to see that happen.
[2020-01-01] MEDS: levalbuterol 0.63 mg/3 mL Neb INHALATION (15:46)
--- NOTE | 2020-01-01 18:27 | PC.NURSE ---
SHIFT SUMMARY PATIENT HAS DONE WELL TODAY. SHE WENT TO THE OR AROUND 1130. WHEN REPORT WAS GIVEN AFTER SURGERY IT WAS NOTED THAT PATIENT HAD LOW BP AND NOW REQUIRED 3L OF OXYGEN. PATIENT ARRIVED TO THE FLOOR AND WALKED FROM STRETCHER TO BED. PATIENT CONNECTED TO CONTINUOUS PULSE OX AND VITALS CART. THIS NURSE HELD LISINOPRIL AND ADMINISTERED TORADOL FOR PAIN. PATIENT'S BP DROPPED TO 79/51, PATIENT WAS ASYMPTOMATIC. DR. RUIZ NOTIFIED AND A 500ML BOLUS OF LR WAS ORDERED AND GIVEN. PATIENT'S BP HAS GRADUALLY INCREASED AFTER. OXYGEN SATURATION STAYING AROUND 93%. PATIENT'S PAIN WELL CONTROLLED. GOOD URINE OUTPUT. NO COMPLAINTS AT THIS TIME.
[2020-01-02] VITALS (8 sets, daily range): BP systolic 107–111; BP diastolic 72–74; PULSE 65–84; RESP 14–19; TEMP 36.4–36.6; O2SAT 95–97
[2020-01-02] MEDS: HYDROcodone-acetaminophen 5-325 mg Tablet PO ×2 (01:12→05:25)
[2020-01-02] MEDS: heparin 5,000 unit/mL INJ 1 mL 5000 UNIT SUBCUT (01:20)
[2020-01-02] MEDS: D5-NS 0.45% + KCL 20 mEq 20 MEQ/1,000 ML BAG 100 MEQ IV (01:21)
[2020-01-02] MEDS: ketorolac 30 mg/mL INJ 15 MG IVP ×2 (03:00→08:10)
[2020-01-02 05:25] LABS: Basophils % 0.2 %; Hematocrit 38.6 % (37.0-47.0); Hemoglobin 12.1 g/dL (11.5-15.3); Lymphocytes # 1.9 10^3/uL (0.8-4.8); Mean Corpuscular HGB Conc 31.3 g/dL (30.0-36.0); Mean Corpuscular Hemoglobin 26.8 pg (28.0-34.0); Mean Corpuscular Volume 85.6 fL (81-99); Mean Platelet Volume 10.6 fL (7.4-10.4); Monocytes % 5.6 %; Neutrophils # 14.36 10^3/uL (1.8-7.7); Neutrophils % 82.7 %; Nucleated Red Blood Cells % 0 %; Platelet Count 335 10^3/cmm (130-400); Red Blood Count 4.51 10^6/uL (4.1-5.3); Red Cell Distribution Width 14.7 % (12.1-15.1); White Blood Count 17.4 10^3/uL (4.0-10.0)
[2020-01-02] MEDS: piperacillin-tazobactam 3.375 GM in sodium chloride 0.9% (plus) 50 ML IV (05:26)
--- NOTE | 2020-01-02 05:31 | PC.NURSE ---
SHIFT SUMMARY Has done well tonight. Received po Hydrocodone X2 for c/o mild burning' pain in abd incisions. All 4 stab incisions clean & dry with bandaids intact. Also received scheduled IV Toradol. Has voided well. Missed hat for measurement once. IV infusing without difficulty. Taking liquids po without nausea and says feels like she might be able to eat a little this morning. Receiving IV antibiotics. Ambulated in rey this morning with nurse and did well. c/o feeling weak but says feels good to be up and around. Passing gas. Cont pulse ox has read between 94-96% through night. Has occ cough with some prod of sputum this morning.
[2020-01-02 06:06] LABS: Alanine Aminotransferase 34 U/L (0-33); Albumin Level 3.5 g/dL (3.5-5.2); Alkaline Phosphatase 75 IU/L (35-105); Amylase 15 U/L (28-100); Aspartate Amino Transferase 27 U/L (0-32); Globulin 1.7 g/dL (1.3-4.6); Lipase 9 U/L (13-60); Total Bilirubin 0.2 mg/dL (0.15-1.2); Total Protein 5.2 g/dL (6.6-8.7)
[2020-01-02 06:07] LABS: Anion Gap 13.1 (5-19); Blood Urea Nitrogen 9 mg/dL (8-23); Calcium 8.5 mg/dL (8.5-10.5); Carbon Dioxide 24 mmol/L (22-29); Chloride 103 mmol/L (98-107); Glomerular Filtration Rate 84.2 mL/min (90-130); Glucose 128 mg/dL (65-115); Osmolality Calculated 282 mOsm/kg (285-295); Potassium 4.1 mmol/L (3.5-5.1); Sodium 136 mmol/L (136-145)
--- NOTE | 2020-01-02 07:08 | ANE.PACU2 ---
Inpatient post-anesthesia follow up: Airway intact: Yes Vital signs: Temperature 98 F Pulse Rate [Monito r] 79 Pulse Rate 69 Respiratory Rate 19 Blood Pressure [Le ft Arm] 164/81 Blood Pressure 107/73 Pulse Oximetry 96 Oxygen Delivery Me thod Nasal Cannula Oxygen Flow Rate 2 Fraction of Inspir ed Oxygen Hydration adequate: Yes Nausea and vomiting: No Pain level: 3 Mental status: Baseline
[2020-01-02] MEDS: levalbuterol 0.63 mg/3 mL Neb INHALATION (07:41)
[2020-01-02] MEDS: escitalopram 10 mg Tablet PO (08:10)
[2020-01-02] MEDS: pantoprazole DR 40 mg Tablet PO (08:10)
--- NOTE | 2020-01-02 08:12 | PM.PN ---
Subjective Subjective: Interval history: The patient is feeling well and is anxious to go home. She is passing flatus and tolerating liquid diet, although she does not have much of an appetite to eat anything more right now. Vitals/I&O/Wt Last Vital Signs Temp 97.5 F L 01/02/20 08:02 Pulse 65 01/02/20 08:02 Resp 18 01/02/20 08:02 BP 111/74 01/02/20 08:02 Pulse Ox 97 01/02/20 08:02 01/01/20 01/02/20 01/02/20 22:59 06:59 14:59 Intake Total 170 / 1395 1175 / 1395 Output Total 900 / 1810 300 / 1810 Balance -730 / -415 875 / -415 Weight last 48 hrs Weight 185 lb Physical Exam Narrative: EXAM NARRATIVE: Blood pressure is more stable. The patient remains afebrile. Bowel sounds remain hypoactive but all of the incisions look good. The Band-Aids were removed but the Steri-Strips were left intact. Data : 01/02/20 04:54 01/02/20 04:54 A&P Assessment and plan (1) Calculus of gallbladder with chronic cholecystitis without obstruction: Status post laparoscopic cholecystectomy for acute calculus cholecystitis on 01/01/2020. The patient's blood pressure was a little bit soft last night postoperatively but is improved this morning. All of her other vital signs look good. She is feeling very well and wants to go home. Her white blood cell count remains elevated but I think this is probably more reactional than anything else. I did intend to recheck her lactate level this morning after it had been drawn in the ER on admission and was elevated. Unfortunately, I had entered tomorrow's date for this test and so a lactate for today is currently being checked. If it looks okay then I think she can safely be discharged. Status: Acute Attestations Medical Necessity Statement*: The patient is back in observation status after the insurance company denied an inpatient status. I was under the impression that since she was going to be here over 2 midnights that she would need to be inpatient status, but her insurance company does not require that. I am hoping that she will be able to be discharged later today. Coding Level of Care Code Acute Sustainability Project Manager for g Fwd Diagnoses Calculus of gallbladder with chronic cholecystitis without obstruction K80.10
[2020-01-02 08:34] LABS: Lactate (Lactic Acid level) 2.2 mmol/L (0.5-2.2)
--- NOTE | 2020-01-02 08:56 | P.DS_ITS ---
Discharge Providers Date of Admission: 01/01/20 02:56 Date of Discharge: January 02, 2020 Attending Provider at Admission: Gui Dacosta MD Attending Provider at Discharge: Gui Dacosta MD Primary Care Provider: Emery Lilly DO Diagnoses at Discharge Discharge Diagnosis (1) Calculus of gallbladder with chronic cholecystitis without obstruction: Status: Acute Reason for Visit Reason for Visit: abd pain Hospital Course Hospital Course This is a 64-year-old white female who presented to the hospital with epigastric abdominal pain. Imaging revealed cholelithiasis but no obvious evidence of acute cholecystitis. The patient's white blood cell count and lactate were elevated, however. Her tenderness seem to be fairly well localized to the right upper quadrant and so the assumption was made that she was developing acute cholecystitis. The patient was taken to the operating room on 01/01/2020 and she had changes typical of acute calculus cholecystitis. She underwent a laparoscopic cholecystectomy. Even later that day she was already feeling better. Her blood pressure remained a little bit soft that evening and she was rehydrated and kept off of her antihypertensive medication. By the following morning it appeared to be much more stable, but her systolic blood pressure was still only around 110. I told her to hold her lisinopril for at least a couple of days at home. She was in the habit of taking her blood pressure at home and said that her systolic blood pressure was usually accustomed to running around 135. I am going to ask her to see Dr. Vicki Lilly, her primary care physician to keep a close eye on her blood pressure and to determine if and when her lisinopril needs to be restarted. The patient's lactate had returned to normal the morning following surgery. Her white blood cell count, however, remained elevated. I suspect most of this was reactional but I am going to leave her on Augmentin 500 mg p.o. twice daily for 5 days as an outpatient. She was instructed with respect to wound care, activity limitations, etc. Arrangements will be made for her to see me in the office within the next 10 to 14 days. Physical Exam Narrative: EXAM NARRATIVE: On the day of discharge, the patient's incisions all look good. The Band-Aids were removed and Steri-Strips were left intact. Bowel sounds were present but remain hypoactive. Discharge Data Data Completed and Pending: Completed Studies During Hospitalization Category Date Time Status CT abdomen pelvis w con* [id number] Urge nt Cat Scan 12/31/19 23:22 Completed US gall bladder 7 [id number] Urgent Ultrasound 01/01/20 01:31 Completed Pending at discharge Category Date Time Status ES surgery / GI i mages Routine Exams 01/01/20 11:26 Ordered Immunochemical Fe papito OCB Routine Lab 01/01/20 07:40 Uncollected Lactate (Lactic A velvet level) AM LABS Lab 01/03/20 04:00 Ordered Pathology: Surgic al [PTH] Routine Pth 01/01/20 12:08 Ordered Labs from last 24 hours 01/02/20 01/02/20 01/02/20 08:10 04:54 04:54 WBC RBC Hgb Hct MCV MCH MCHC RDW Plt Count MPV Neut % (Auto) Lymph % (Auto) [place] % (Auto) Eos % (Auto) Baso % (Auto) Neut # (Auto) Lymph # (Auto) [place] # (Auto) Eos # (Auto) Baso # (Auto) Nucleated RBC % (a uto) Nucleated RBCs # Sodium 136 Potassium 4.1 Chloride 103 Carbon Dioxide 24 Anion Gap 13.1 BUN 9 Creatinine 0.7 GFR Calculation 84.2 L Glucose 128 H Calculated Osmolal ity 282 L Lactate 2.2 Calcium 8.5 Total Bilirubin 0.2 Direct Bilirubin 0.20 AST 27 ALT 34 H Alkaline Phosphata se 75 Total Protein 5.2 L Albumin 3.5 Globulin 1.7 Amylase 15 L Lipase 9 L H. pylori IgG Anti body 01/02/20 12/31/19 04:54 23:00 WBC 17.4 H RBC 4.51 Hgb 12.1 Hct 38.6 MCV 85.6 MCH 26.8 L MCHC 31.3 RDW 14.7 Plt Count 335 MPV 10.6 H Neut % (Auto) 82.7 Lymph % (Auto) 11.0 [place] % (Auto) 5.6 Eos % (Auto) 0.0 Baso % (Auto) 0.2 Neut # (Auto) 14.36 H Lymph # (Auto) 1.9 [place] # (Auto) 1.0 H Eos # (Auto) 0.0 Baso # (Auto) 0.0 Nucleated RBC % (a uto) 0 Nucleated RBCs # 0.0 Sodium Potassium Chloride Carbon Dioxide Anion Gap BUN Creatinine GFR Calculation Glucose Calculated Osmolal ity Lactate Calcium Total Bilirubin Direct Bilirubin AST ALT Alkaline Phosphata se Total Protein Albumin Globulin Amylase Lipase H. pylori IgG Anti body Negative Vitals: Last Vital Signs Temp 97.5 F L 01/02/20 08:02 Pulse 65 01/02/20 08:02 Resp 18 01/02/20 08:02 BP 111/74 01/02/20 08:02 Pulse Ox 97 01/02/20 08:02 Discharge Plan Discharge Patient Disposition: Home Condition: Stable Prescriptions: New hydrocodone-acetaminophen 5-325 mg tablet 1 - 2 tab PO Q5H PRN (Reason: pain) Qty: 30 RF: 0 amoxicillin-pot clavulanate [Augmentin] 500-125 mg tablet 1 tab PO BID Qty: 10 RF: 0 Continued triamcinolone acetonide [Kenalog] 40 mg/mL suspension 40 mg IM ONCE Qty: 2 RF: 0 ropivacaine (PF) 5 mg/mL (0.5 %) solution 4 ml intra-articular ONCE Qty: 4 RF: 0 esomeprazole magnesium [Nexium] 40 mg capsule,delayed release(DR/EC) 40 mg PO QDAY RF: 0 alprazolam 0.25 mg tablet 0.25 mg PO QDAY RF: 0 quetiapine 50 mg tablet 50 mg PO QDAY RF: 0 escitalopram oxalate [Lexapro] 10 mg tablet 10 mg PO DAILY RF: 0 omeprazole 40 mg capsule,delayed release(DR/EC) 40 mg PO DAILY RF: 0 Held lisinopril 20 mg tablet 20 mg PO DAILY RF: 0 Hold Instructions: Resume on 01/04/20. Discharge Orders: Discharge Order (Routine); Ordered 01/02/20 Ordered By: Gui Dacosta Referrals: Gui Dacosta MD [Physician] - 2 weeks (Nursing: Please call Dr. Dacosta's office ([phone]) and make an appointment for the patient to be seen in 10-14 days.) Emery Lilly DO [Primary Care Provider] - 4-7 days Discharge Diet: Advance as tolerated Discharge Activity: Limit activity as instructed Activity Restrictions/Additional Instructions: 1. Discharge to home today. 2. Appointment to see Dr. Dacosta in 10-14 days. 3. Leave Steri-Strip(s) on as discussed, may shower. 4. Mckenzie 5/325 1-2 tablets by mouth every 5 hours as needed for pain. #30, no refills. 5. Augmentin 500 mg p.o. twice daily x5 days. No lifting over 20 pounds, no repetitive bending or twisting, no strenuous push ing / pulling or other heavy activity. Ambulate regularly. May go up and down steps if needed. Discharge Attestations Time Spent in Discharge Care*: less than 30 min Quality Metrics Clinical Quality Measures During this hospital stay, did patient experience: None Coding Level of Care Code Acute Maintenance Mechanic Telephone for Chg Fwd Diagnoses Calculus of gallbladder with chronic cholecystitis without obstruction K80.10
[2020-01-02] MEDS: amoxicillin-clav 500-125 mg Tablet 1 TAB PO (09:22)
--- NOTE | 2020-01-02 17:40 | PC.RESP ---
Smoking Cessation information sent to patient.
== END 2020-01-02 09:56 | disposition home or self-care (01) ==
LOC: ER 22:49 → MEDSURG 01-01 03:05
PROVIDERS: Admitting Provider Surgery; Emergency Provider Emergency Medicine; PCP Electrodiagnostic Medicine; Visit Provider Surgery
PROC: 0FT44ZZ Resection of Gallbladder, Percutaneous Endoscopic Approach (ICD-10-PCS; CPT 47562; principal; 2020-01-01 11:30)
DX: K80.10 Calculus of gallbladder with chronic cholecystitis without obstruction (principal); F17.210 Nicotine dependence, cigarettes, uncomplicated
CPT/HCPCS: 47562; 12345; 36415; 74177; 76705; 80048; 80053; 80076; 81003; 82150; 83605; 83690; 85025; 86677; 88304; 94640; 94762; 96361; 96365; 96366; 96372; 96375; 96376; 99283; 99285; C9113; G0378; J0690; J1170; J1644; J1885; J2270; J2405; J2543; J2704; J2710; J3010; J3490; J7611; J7614; Q9967

== ENCOUNTER → 2021-01-01 09:58 | Outpatient (BNVA) | payer MEDICARE, SELFPAY | PROVIDERS: PCP Electrodiagnostic Medicine; Visit Provider Internal Medicine Rheumatology | DX: M25.551 Pain in right hip (principal); M25.552 Pain in left hip; Z79.899 Other long term (current) drug therapy; R53.82 Chronic fatigue, unspecified | CPT/HCPCS: 99203; 99204 ==

== ENCOUNTER 2022-04-30 03:59 | Emergency (ER) | payer MEDICARE, SELFPAY ==
[2022-04-30 04:05] VITALS: BP 158/90; PULSE 110; RESP 18; TEMP 36.8; O2SAT 94; BMI 26.5
--- NOTE | 2022-04-30 04:21 | CTR_ITS ---
PROCEDURE INFORMATION: Exam: CT Abdomen And Pelvis With Contrast Exam date and time: 04/30/2022 5:18 AM Age: 66 years old Clinical indication: Abdominal pain; Generalized; Prior surgery; Surgery type: Gb. Appy; Patient HX: C/O severe diffuse abd pain with nausea. TECHNIQUE: Imaging protocol: Computed tomography of the abdomen and pelvis with contrast. Radiation optimization: All CT scans at this facility use at least one of these dose optimization techniques: automated exposure control; mA and/or kV adjustment per patient size (includes targeted exams where dose is matched to clinical indication); or iterative reconstruction. Contrast material: OMNI 350; Contrast volume: 100 ml; Contrast route: INTRAVENOUS (IV); REPORTING DATA: Count of CT and Cardiac NM exams in prior 12 months: This patient has received 0 known CTs and 0 known cardiac nuclear medicine studies in the 12 months prior to the current study. COMPARISON: 1. CT abdomen pelvis w con* [id number] 01/01/2020 12:[address] abdomen pelvis w con* [id number] 12/25/2018 1:11 AM RADIATION DOSE METRICS: Total DLP (mGy-cm): 542.92 FINDINGS: Lungs: Lung bases are clear. Liver: There is a simple cyst in the liver. Gallbladder and bile ducts: The gallbladder is absent. There is no intrahepatic or extrahepatic bile duct dilation. Pancreas: The pancreas is unremarkable. Spleen: The spleen is unremarkable. Adrenal glands: 17 x 17 mm intermediate density left adrenal nodule is stable since 12/25/2018. The right adrenal gland is normal. Kidneys and ureters: The kidneys are unremarkable. No hydronephrosis or stones. No ureteral dilation. Stomach and bowel: The stomach is decompressed, preventing meaningful evaluation of wall thickness. The small bowel is decompressed diffusely. There is moderate sigmoid colonic diverticulosis without evidence of diverticulitis. Appendix: The appendix is absent. Intraperitoneal space: There is no free air or significant intraperitoneal free fluid. Vasculature: There is mild aortic atherosclerotic disease. The portal, splenic and superior mesenteric veins are patent. Lymph nodes: There is no lymphadenopathy in the retroperitoneum, mesentery, pelvis or inguinal regions. Urinary bladder: The urinary bladder is unremarkable. Reproductive: The uterus is unremarkable. There is no adnexal mass or large cyst. Bones/joints: There is mild degenerative disease in the lumbar spine. The pelvis and hips are unremarkable. Soft tissues: The abdominal wall is intact. CT/CT abdomen pelvis w con* [id number] IMPRESSION: 1. No acute findings. 2. 17 mm left adrenal nodule, stable since 2019. No follow-up is necessary. (Reference: Avis) 3. Incidental findings above. REFERENCES: Avis YOUNGBLOOD, et al. Management of Incidental Adrenal Masses: A White Paper of the ACR Incidental Findings Committee. J Am Jorge Radiol. 2017;14(8):4154-6117.
[2022-04-30] MEDS: sodium chloride 0.9% 1,000 ML 999 ML IV (04:30)
--- NOTE | 2022-04-30 04:34 | ED_ITS ---
Documented by User: Neto Cheung MD 04/30/22 05:49 HPI - Abdominal Pain General: Chief Complaint: Abdominal Pain Stated Complaint: Insides falling out Time Seen by Provider: 04/30/22 04:02 Source: patient Mode of arrival: ambulatory Limitations: no limitations History of Present Illness: [id number] female states that she has had severe abdominal pain throughout the day she states she had felt a pop and a tearing sensation and she believes her intestines of ripped in her abdomen. She has had nausea denies any vomiting denies any diarrhea pain is currently a 6 out of 10 fever denies any worsening improving factors. Associated Symptoms: Denies chills, diarrhea, dysuria, fever(s), nausea and vomiting Review of Systems Const: Denies: fever(s), chills, body aches or change in appetite Eyes: Denies: blurry vision or eye discomfort ENMT: Denies: throat pain or dental pain Card: Denies: chest pain Resp: Denies: dyspnea GI: Reports: abdominal pain; Denies: nausea, vomiting or diarrhea : Denies: dysuria Musc: Denies: neck pain or back pain Skin/Breast: Denies: rash Neuro: Denies: headache(s) Psych: Denies: depression Homero/Lymph: Denies: easy bruising All/Imm: Denies: urticaria PFSH ED PFSH: Medical History Chronic fatigue Diverticulosis 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 Hypertension Insomnia Trochanteric bursitis of left hip Trochanteric bursitis, left hip Surgical History History of appendectomy Family History Other CAD (coronary artery disease) Hypertension Denies family history of Rheumatoid arthritis Diabetes Lupus Chronic kidney disease (CKD) Lung disease Cancer Stroke Social History Smoking and tobacco status: former smoker Alcohol intake: never Physical Exam Const: COMMON NORMALS: no acute distress, patient oriented x3 and healthy appearing HENMT: COMMON NORMALS: normocephalic and atraumatic HEAD & SCALP: normoc ephalic and atraumatic Eye: COMMON NORMALS: Equal, round and reactive pupils present and EOMs intact bilaterally PUPIL: Yes Equal, round and reactive pupils present Neck/C-Spine: COMMON NORMALS: full ROM and supple Chest: COMMONS NORMALS: normal inspection of the chest and normal palpation of entire chest wall Resp: COMMON NORMALS: normal respiratory effort, No retractions, No use of accessory muscles and clear to auscultation bilaterally AUSCULTATION: clear to auscultation bilaterally Cardio: COMMON NORMALS: regular rate, regular rhythm and No murmurs present (Cardio) RATE: regular rate RHYTHM: regular rhythm GI: COMMON NORMALS: Normal to inspection, nondistended, normoactive bowel sounds present, Soft to palpation, non-tender and no masses PALPATION: Yes Soft to palpation Extremity: COMMON NORMALS: normal to inspection and full ROM Neuro: COMMON NORMALS: patient oriented x3, moves all extremities and no focal motor deficits Psych: COMMON NORMALS: mental status grossly normal, Normal thought process present and cooperative THOUGHT PROCESS: Normal thought process present Skin: COMMON NORMALS: no rashes or lesions noted and no wounds GENERAL SKIN EXAM: no rashes or lesions noted Course Vital Signs: Vital signs: Vital Signs Temperature 98.2 F 04/30/22 04:05 Pulse Rate 90 04/30/22 06:08 Respiratory Rate 18 04/30/22 04:05 Blood Pressure 143/90 04/30/22 06:36 Pulse Oximetry 94 04/30/22 06:36 MDM - Abdominal Pain Medical Decision Making Patient presents here with abdominal pain patient's blood work here is normal she is pending a CT scan of her abdomen care turned over to Dr. Chino to follow CT scan. Lab Data 04/30/22 04:25 04/30/22 04:25 Labs/Radiology: Radiology Impressions Abdomen/Pelvis CT 04/30/22 04:21 IMPRESSION: 1. No acute findings. 2. 17 mm left adrenal nodule, stable since 2019. No follow-up is necessary. (Reference: Avis) 3. Incidental findings above. REFERENCES: Avis YOUNGBLOOD, et al. Management of Incidental Adrenal Masses: A White Paper of the ACR Incidental Findings Committee. J Am Jorge Radiol. 2017;14(8):5720-9322. Laboratory Results WBC 10.8 10^3/uL (4.0-10.0) H 03/17/23 04:25 RBC 5.73 10^6/uL (4.1-5.3) H 04/30/22 04:25 Hgb 16.0 g/dL (11.5-15.3) H 04/30/22 04:25 Hct 49.8 % (37.0-47.0) H 04/30/22 04:25 MCV 86.9 fl (81-99) 04/30/22 04:25 MCH 27.9 pg (28.0-34.0) L 04/30/22 04:25 MCHC 32.1 g/dL (30.0-36.0) 04/30/22 04:25 RDW 14.5 % (12.1-15.1) 04/30/22 04:25 Plt Count 357 10^3/cmm (130-400) 04/30/22 04:25 MPV 10.4 fL (7.4-10.4) 04/30/22 04:25 Neut % (Auto) 62.8 % 04/30/22 04:25 Lymph % (Auto) 29.5 % 04/30/22 04:25 Antelope % (Auto) 5.6 % 04/30/22 04:25 Eos % (Auto) 1.1 % 04/30/22 04:25 Baso % (Auto) 0.6 % 04/30/22 04:25 Neut # (Auto) 6.78 10^3/uL (1.8-7.7) 04/30/22 04:25 Lymph # (Auto) 3.2 10^3/uL (0.8-4.8) 04/30/22 04:25 Antelope # (Auto) 0.6 10^3/uL (0.2-0.9) 04/30/22 04:25 Eos # (Auto) 0.1 10^3/uL (0.0-0.8) 04/30/22 04:25 Baso # (Auto) 0.1 10^3/uL (0.0-0.1) 04/30/22 04:25 Nucleated RBC % (auto) 0 % 04/30/22 04:25 Nucleated RBCs # 0.0 /100WBC 04/30/22 04:25 Sodium 144 mmol/L (136-145) 04/30/22 04:25 Potassium 3.8 mmol/L (3.5-5.1) 04/30/22 04:25 Chloride 104 mmol/L (98-107) 04/30/22 04:25 Carbon Dioxide 26 mmol/L (22-29) 04/30/22 04:25 Anion Gap 17.8 (5-19) 04/30/22 04:25 BUN 15 mg/dL (8-23) 04/30/22 04:25 Creatinine 0.9 mg/dL (0.5-0.9) 04/30/22 04:25 GFR Calculation 62.6 mL/min (90-130) L 04/30/22 04:25 Glucose 130 mg/dL (65-115) H 04/30/22 04:25 Calculated Osmolality 301 mOsm/kg (285-295) H 04/30/22 04:25 Lactate 2.4 mmol/L (0.5-2.2) H 04/30/22 04:25 Calcium 10.0 mg/dL (8.5-10.5) 04/30/22 04:25 Total Bilirubin 0.2 mg/dL (0.15-1.2) 04/30/22 04:25 AST 16 U/L (0-32) 04/30/22 04:25 ALT 13 U/L (0-33) 04/30/22 04:25 Alkaline Phosphatase 102 U/L (35-105) 04/30/22 04:25 Total Protein 7.2 g/dL (6.6-8.7) 04/30/22 04:25 Albumin 4.1 g/dL (3.5-5.2) 04/30/22 04:25 Globulin 3.1 g/dL (1.3-4.6) 04/30/22 04:25 Lipase 45 U/L (13-60) 04/30/22 04:25 Urine Color Yellow (Yellow) 04/30/22 04:48 Urine Appearance Clear (CLEAR) 04/30/22 04:48 Urine pH 5 (5-7) 04/30/22 04:48 Ur Specific Kingfisher 1.020 (1.005-1.030) 04/30/22 04:48 Urine Protein Neg (Negative) 04/30/22 04:48 Urine Glucose (UA) Norm (Normal) 04/30/22 04:48 Urine Ketones Negative (Negative) 04/30/22 04:48 Urine Blood 2+ (Negative) H 04/30/22 04:48 Urine Nitrate Negative (Negative) 04/30/22 04:48 Urine Bilirubin Neg (Negative) 04/30/22 04:48 Urine Urobilinogen Norm mg/dL (Negative) 04/30/22 04:48 Ur Leukocyte Esterase Negative (Negative) 04/30/22 04:48 Urine RBC 0-4 /hpf (0-2) H 04/30/22 04:48 Urine WBC 0-4 /hpf (0-5) H 04/30/22 04:48 Ur Squamous Epith Cells 5-10 /hpf (0-5) H 04/30/22 04:48 Amorphous Sediment Not Reportable 04/30/22 04:48 Urine Bacteria Trace /hpf (NONE) 04/30/22 04:48 Discharge Plan Discharge Patient Disposition: Home Clinical Impression: Abdominal pain Condition: Stable Prescriptions: No Action triamcinolone acetonide [Kenalog] 40 mg/mL suspension 40 mg IM ONCE Qty: 2 0RF Rx Instructions: one time ropivacaine (PF) 5 mg/mL (0.5 %) solution 4 ml intra-articular ONCE Qty: 4 0RF Rx Instructions: one time shot alprazolam 0.25 mg tablet 0.25 mg PO QDAY quetiapine 50 mg tablet 50 mg PO QDAY escitalopram oxalate [Lexapro] 10 mg tablet 10 mg PO DAILY diclofenac sodium 75 mg tablet,delayed release (DR/EC) 75 mg PO BID PRN (Reason: pain) Qty: 30 1RF lisinopril 20 mg tablet 20 mg PO DAILY Hold Instructions: Resume on 01/04/20. omeprazole 40 mg capsule,delayed release(DR/EC) 40 mg PO DAILY Discharge Orders: Discharge ED (Routine); Ordered 04/30/22 Ordered By: Mason Chino Referrals: Gui Dacosta MD [Primary Care Provider] - Discharge Diet: Advance as tolerated Discharge Activity: Resume usual activity Patient Instructions: Abdominal Pain (ED) Activity Restrictions/Additional Instructions: You were seen today for abdominal pain. CT was unremarkable. You were slightly dehydrated you were given fluids for this. No emergent condition was noted at this time. Thank you for choosing [facility] for your healthcare needs today. Please realize this is an emergency room and that we are providing you with a medical screening exam and this may not be complete and all inclusive of all the testing and or work up that you may need to determine your ailment or severity of your illness. It is very important that you follow up as instructed or that you return to the Emergency Department should you have concerns or if your condition changes or worsens in any way. Sign Out Sign Out Data: Patient Sign Out occurred on 04/30/22 at 07:10. Patient's care was discussed, and care was transferred from to Mason Chino DO. 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 Hypertension Insomnia Trochanteric bursitis of left hip Trochanteric bursitis, left hip Surgical History History of appendectomy Family History Other CAD (coronary artery disease) Hypertension Denies family history of Rheumatoid arthritis Diabetes Lupus Chronic kidney disease (CKD) Lung disease Cancer Stroke Social History Smoking and tobacco status: former smoker Alcohol intake: never Course Vital Signs: Vital signs: Vital Signs Temperature 98.2 F 04/30/22 04:05 Pulse Rate 90 04/30/22 06:08 Respiratory Rate 18 04/30/22 04:05 Blood Pressure 143/90 04/30/22 06:36 Pulse Oximetry 94 04/30/22 06:36 MDM - Abdominal Pain Medical Decision Making Patient presents here with abdominal pain patient's blood work here is normal she is pending a CT scan of her abdomen care turned over to Dr. Chino to follow CT scan. Assumed care at change of shift. Labs reviewed chart reviewed had discussed patient with Dr. Cheung. CT does not show any acute changes. She is mildly hemoconcentrated and her lactate was very slightly elevated given her abdominal exam and the remainder of her labs do not believe she is septic at this time abdominal exam is benign CT of the abdomen did not show any acute changes. Patient will be discharged home. Follow-up with her primary care doctor. She was concerned asked to see Dr. Dacosta. Patient advised to follow-up in his office at this point he is not available for consultation in the emergency room as he is not on-call. Medical Records I reviewed the patient's medical records. Lab Data I reviewed the patient's lab results. 04/30/22 04:25 04/30/22 04:25 Labs/Radiology: Radiology Impressions Abdomen/Pelvis CT 04/30/22 04:21 IMPRESSION: 1. No acute findings. 2. 17 mm left adrenal nodule, stable since 2019. No follow-up is necessary. (Reference: Avis) 3. Incidental findings above. REFERENCES: Avis YOUNGBLOOD, et al. Management of Incidental Adrenal Masses: A White Paper of the ACR Incidental Findings Committee. J Am Jorge Radiol. 2017;14(8):8376-1479. Laboratory Results WBC 10.8 10^3/uL (4.0-10.0) H 04/30/22 04:25 RBC 5.73 10^6/uL (4.1-5.3) H 04/30/22 04:25 Hgb 16.0 g/dL (11.5-15.3) H 04/30/22 04:25 Hct 49.8 % (37.0-47.0) H 04/30/22 04:25 MCV 86.9 fl (81-99) 04/30/22 04:25 MCH 27.9 pg (28.0-34.0) L 04/30/22 04:25 MCHC 32.1 g/dL (30.0-36.0) 04/30/22 04:25 RDW 14.5 % (12.1-15.1) 04/30/22 04:25 Plt Count 357 10^3/cmm (130-400) 04/30/22 04:25 MPV 10.4 fL (7.4-10.4) 04/30/22 04:25 Neut % (Auto) 62.8 % 04/30/22 04:25 Lymph % (Auto) 29.5 % 04/30/22 04:25 Antelope % (Auto) 5.6 % 04/30/22 04:25 Eos % (Auto) 1.1 % 04/30/22 04:25 Baso % (Auto) 0.6 % 04/30/22 04:25 Neut # (Auto) 6.78 10^3/uL (1.8-7.7) 04/30/22 04:25 Lymph # (Auto) 3.2 10^3/uL (0.8-4.8) 04/30/22 04:25 Antelope # (Auto) 0.6 10^3/uL (0.2-0.9) 04/30/22 04:25 Eos # (Auto) 0.1 10^3/uL (0.0-0.8) 04/30/22 04:25 Baso # (Auto) 0.1 10^3/uL (0.0-0.1) 04/30/22 04:25 Nucleated RBC % (auto) 0 % 04/30/22 04:25 Nucleated RBCs # 0.0 /100WBC 04/30/22 04:25 Sodium 144 mmol/L (136-145) 04/30/22 04:25 Potassium 3.8 mmol/L (3.5-5.1) 04/30/22 04:25 Chloride 104 mmol/L (98-107) 04/30/22 04:25 Carbon Dioxide 26 mmol/L (22-29) 04/30/22 04:25 Anion Gap 17.8 (5-19) 04/30/22 04:25 BUN 15 mg/dL (8-23) 04/30/22 04:25 Creatinine 0.9 mg/dL (0.5-0.9) 04/30/22 04:25 GFR Calculation 62.6 mL/min (90-130) L 04/30/22 04:25 Glucose 130 mg/dL (65-115) H 04/30/22 04:25 Calculated Osmolality 301 mOsm/kg (285-295) H 04/30/22 04:25 Lactate 2.4 mmol/L (0.5-2.2) H 04/30/22 04:25 Calcium 10.0 mg/dL (8.5-10.5) 04/30/22 04:25 Total Bilirubin 0.2 mg/dL (0.15-1.2) 04/30/22 04:25 AST 16 U/L (0-32) 04/30/22 04:25 ALT 13 U/L (0-33) 04/30/22 04:25 Alkaline Phosphatase 102 U/L (35-105) 04/30/22 04:25 Total Protein 7.2 g/dL (6.6-8.7) 04/30/22 04:25 Albumin 4.1 g/dL (3.5-5.2) 04/30/22 04:25 Globulin 3.1 g/dL (1.3-4.6) 04/30/22 04:25 Lipase 45 U/L (13-60) 04/30/22 04:25 Urine Color Yellow (Yellow) 04/30/22 04:48 Urine Appearance Clear (CLEAR) 04/30/22 04:48 Urine pH 5 (5-7) 04/30/22 04:48 Ur Specific Kingfisher 1.020 (1.005-1.030) 04/30/22 04:48 Urine Protein Neg (Negative) 04/30/22 04:48 Urine Glucose (UA) Norm (Normal) 04/30/22 04:48 Urine Ketones Negative (Negative) 04/30/22 04:48 Urine Blood 2+ (Negative) H 04/30/22 04:48 Urine Nitrate Negative (Negative) 04/30/22 04:48 Urine Bilirubin Neg (Negative) 04/30/22 04:48 Urine Urobilinogen Norm mg/dL (Negative) 04/30/22 04:48 Ur Leukocyte Esterase Negative (Negative) 04/30/22 04:48 Urine RBC 0-4 /hpf (0-2) H 04/30/22 04:48 Urine WBC 0-4 /hpf (0-5) H 04/30/22 04:48 Ur Squamous Epith Cells 5-10 /hpf (0-5) H 04/30/22 04:48 Amorphous Sediment Not Reportable 04/30/22 04:48 Urine Bacteria Trace /hpf (NONE) 04/30/22 04:48 Discharge Plan Discharge Patient Disposition: Home Clinical Impression: Abdominal pain Condition: Stable Prescriptions: No Action triamcinolone acetonide [Kenalog] 40 mg/mL suspension 40 mg IM ONCE Qty: 2 0RF Rx Instructions: one time ropivacaine (PF) 5 mg/mL (0.5 %) solution 4 ml intra-articular ONCE Qty: 4 0RF Rx Instructions: one time shot alprazolam 0.25 mg tablet 0.25 mg PO QDAY quetiapine 50 mg tablet 50 mg PO QDAY escitalopram oxalate [Lexapro] 10 mg tablet 10 mg PO DAILY diclofenac sodium 75 mg tablet,delayed release (DR/EC) 75 mg PO BID PRN (Reason: pain) Qty: 30 1RF lisinopril 20 mg tablet 20 mg PO DAILY Hold Instructions: Resume on 01/04/20. omeprazole 40 mg capsule,delayed release(DR/EC) 40 mg PO DAILY Discharge Orders: Discharge ED (Routine); Ordered 04/30/22 Ordered By: Mason Chino Referrals: Gui Dacosta MD [Primary Care Provider] - Discharge Diet: Advance as tolerated Discharge Activity: Resume usual activity Patient Instructions: Abdominal Pain (ED) Activity Restrictions/Additional Instructions: You were seen today for abdominal pain. CT was unremarkable. You were slightly dehydrated you were given fluids for this. No emergent condition was noted at this time. Thank you for choosing [facility] for your healthcare needs today. Please realize this is an emergency room and that we are providing you with a medical screening exam and this may not be complete and all inclusive of all the testing and or work up that you may need to determine your ailment or severity of your illness. It is very important that you follow up as instructed or that you return to the Emergency Department should you have concerns or if your condition changes or worsens in any way. Sign Out Sign Out Data: Patient Sign Out occurred on 04/30/22 at 07:10. Patient's care was discussed, and care was transferred from to Mason Chino DO. Coding Level of Care Code ED Councilperson for Vidya Pandya
[2022-04-30 04:40] LABS: Basophils # 0.1 10^3/uL (0.0-0.1); Basophils % 0.6 %; Eosinophils # 0.1 10^3/uL (0.0-0.8); Eosinophils % 1.1 %; Hematocrit 49.8 % (37.0-47.0); Lymphocytes # 3.2 10^3/uL (0.8-4.8); Lymphocytes % 29.5 %; Mean Corpuscular HGB Conc 32.1 g/dL (30.0-36.0); Mean Corpuscular Hemoglobin 27.9 pg (28.0-34.0); Mean Corpuscular Volume 86.9 fl (81-99); Mean Platelet Volume 10.4 fL (7.4-10.4); Monocytes # 0.6 10^3/uL (0.2-0.9); Monocytes % 5.6 %; Neutrophils # 6.78 10^3/uL (1.8-7.7); Neutrophils % 62.8 %; Nucleated Red Blood Cells % 0 %; Platelet Count 357 10^3/cmm (130-400); Red Blood Count 5.73 10^6/uL (4.1-5.3); Red Cell Distribution Width 14.5 % (12.1-15.1); White Blood Count 10.8 10^3/uL (4.0-10.0)
[2022-04-30 05:02] LABS: Add Urine Microscopic? YES; Bilirubin Urine Neg (Negative); Blood Urine 2+ (Negative); Glucose Urine UA Norm (Normal); Ketones Urine Negative (Negative); Leukocyte Esterase Urine Negative (Negative); Nitrate Urine Negative (Negative); Protein Urine Neg (Negative); Urine Appearance Clear (CLEAR); Urine Color Yellow (Yellow); Urobilinogen Urine Norm (Negative); pH Urine 5 (5-7)
[2022-04-30 05:07] LABS: Bacteria Urine TRACE /hpf; RBC Urine 0-4 /hpf (0-2); WBC Urine 0-4 /hpf (0-5)
[2022-04-30 05:12] LABS: Alanine Aminotransferase 13 U/L (0-33); Albumin Level 4.1 g/dL (3.5-5.2); Alkaline Phosphatase 102 U/L (35-105); Anion Gap 17.8 (5-19); Aspartate Amino Transferase 16 U/L (0-32); Blood Urea Nitrogen 15 mg/dL (8-23); Carbon Dioxide 26 mmol/L (22-29); Chloride 104 mmol/L (98-107); Creatinine Clr Calc Pharmacy 56.9358; Globulin 3.1 g/dL (1.3-4.6); Glomerular Filtration Rate 62.6 mL/min (90-130); Glucose 130 mg/dL (65-115); Lactate (Lactic Acid level) 2.4 mmol/L (0.5-2.2); Lipase 45 U/L (13-60); Osmolality Calculated 301 mOsm/kg (285-295); Potassium 3.8 mmol/L (3.5-5.1); Sodium 144 mmol/L (136-145); Total Bilirubin 0.2 mg/dL (0.15-1.2); Total Protein 7.2 g/dL (6.6-8.7)
[2022-04-30] MEDS: iohexol 350 mg/mL 500 mL Btl (per mL) IV (05:20)
[2022-04-30 06:08] VITALS: BP 161/94; PULSE 90; O2SAT 97
[2022-04-30 06:36] VITALS: BP 143/90; O2SAT 94
== END 2022-04-30 08:28 | disposition home or self-care (01) ==
PROVIDERS: Emergency Medicine; Emergency Provider Family Medicine; PCP Surgery
DX: R10.9 Unspecified abdominal pain (principal); Z87.891 Personal history of nicotine dependence; I10 Essential (primary) hypertension
CPT/HCPCS: 74177; 80053; 81001; 83605; 83690; 85025; 96360; 96361; 99285; J7030; Q9967